=== PATIENT | female | born 1945 | race Caucasian/White ===

== ENCOUNTER 2018-12-10 14:15 | Observation (INO) | payer MEDICARE ==
[2018-12-10 15:56] LABS: Urine Appearance Clear; Urine Bilirubin Negative (Negative); Urine Blood Negative (Negative); Urine Color Straw; Urine Glucose Negative (Negative); Urine Ketones Negative (Negative); Urine Nitrite Negative (Negative); Urine Protein Negative (Negative); Urine Specific Gravity 1.003 (1.010-1.030); Urine Urobilinogen Negative (Negative)
[2018-12-10 16:08] LABS: ABS Basophils 0.1 10^3/ul (0-0.2); ABS Eosinophils 0.2 10^3/ul (0-0.6); ABS Lymphocytes 1.9 10^3/ul (1.0-4.8); ABS Monocytes 0.8 10^3/ul (0-0.8); ABS Neutrophils 5.5 10^3/ul (1.5-7.7); Eosinophil % 1.8 %; Hematocrit 41 % (35-47); Hemoglobin 14.1 g/dL (12.0-16.0); Lymphocyte % 22.2 %; Mean Corpuscular HGB Conc 34 g/dL (31-36); Mean Corpuscular Hemoglobin 30 pg (27-31); Mean Corpuscular Volume 87 fL (80-97); Mean Platelet Volume 8.1 fL (7.4-10.4); Platelet Count 265 10^3/uL (150-450); Red Blood Count 4.73 10^6 /uL (3.70-4.87); Red Cell Distribution Width 15 % (10-15); White Blood Count 8.4 10^3/uL (3.5-10.8)
[2018-12-10] MEDS ORDERED: Aspirin 81 mg CHEW TAB* 81 MG TAB.CHEW PO ONE (16:18)
--- NOTE | 2018-12-10 16:18 | ED ---
Neurological HPI - HPI Summary HPI Summary: This patient is a 73 year old F with a history of scoliosis presenting to [facility] accompanied by son with a chief complaint of chronic unsteady gait, worsening since November,. Pt report Dr. 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 Patient reports spasming in her left thigh. Patient denies weakness and numbness in arms and legs. No history of prior stroke. - History of Current Complaint Chief Complaint: EDNeurologicalDeficit Stated Complaint: WEAKNESS AND FALLING PER PT Time Seen by Provider: 12/10/18 15:24 Hx Obtained From: Patient Onset/Duration: Started weeks ago, Still Present, Worse Since - November 2018 Timing: Constant Pain Intensity: 0 Pain Scale Used: 0-10 Numeric Character: Other: - Unsteadt gait Associated Signs and Symptoms: Positive: Unsteady Gait. Negative: Weakness, Numbness - Allergy/Home Medications Allergies/Adverse Reactions: Allergies Allergy/AdvReac Type Severity Reaction Status Date / Time amoxicillin Allergy Nausea Verified 12/10/18 14:22 Home Medications: Home Medications Acetaminophen [Tylenol] 650 mg PO Q8H PRN 12/10/18 [History Confirmed 12/10/18] Amlodipine Besylate [Norvasc] 7.5 mg PO DAILY 12/10/18 [History Confirmed ] Aspirin [Aspirin EC] 81 mg PO DAILY 12/10/18 [History Confirmed 12/10/18] Cholecalciferol TAB* [Vitamin D TAB*] 1,000 units PO DAILY 12/10/18 [History Confirmed 12/10/18] Levothyroxine TAB* [Synthroid TAB*] 75 mcg PO EVERY OTHER DAY 12/10/18 [History Confirmed 12/10/18] Levothyroxine TAB* [Synthroid TAB*] 150 mcg PO EVERY OTHER DAY 12/10/18 [ History Confirmed 12/10/18] Loratadine [Claritin] 10 mg PO DAILY 12/10/18 [History Confirmed 12/10/18] Oxybutynin XL TAB* [Ditropan XL TAB*] 5 mg PO DAILY 12/10/18 [History Confirmed 12/10/18] Sertraline* [Zoloft*] 100 mg PO DAILY 12/10/18 [History Confirmed 12/10/18] PMH/Surg Hx/FS Hx/Imm Hx Endocrine/Hematology History: Reports: Hx Thyroid Disease Cardiovascular History: Reports: Hx Hypertension Infectious Disease History: No Infectious Disease History: Denies: Traveled Outside the [place] in Last 30 Days - Family History Known Family History: Positive: Hypertension, Diabetes - Social History Occupation: Retired Alcohol Use: Weekly Alcohol Amount: 3-4 x a week Hx Substance Use: No Substance Use Type: Reports: None Hx Tobacco Use: No Smoking Status (MU): Never Smoked Tobacco Review of Systems Positive: Other - pos -spasming in left thigh Neurological: Other - pos - unsteady gait Positive: Numbness. Negative: Weakness All Other Systems Reviewed And Are Negative: Yes Physical Exam - Summary Physical Exam Summary: Constitutional: Well-developed, Well-nourished, Alert. (-) Distressed Skin: Warm, Dry HENT: Normocephalic; Atraumatic Eyes: Conjunctiva normal Neck: Musculoskeletal ROM normal neck. (-) JVD, (-) Nuchal rigidity Cardio: Rhythm regular, rate normal, Heart sounds normal; Intact distal pulses; Radial pulses are 2+ and symmetric. (-) Murmur Pulmonary/Chest wall: Effort normal. (-) Respiratory distress, (-) Wheezes, (-) Rales Abd: Soft. (-) Tenderness, (-) Distension, (-) Guarding, (-) Rebound Musculoskeletal: (-) Edema Lymph: (-) Cervical adenopathy Neuro: Alert, PERRL, Oriented x3, Strength normal, Cranial nerves II-XII are grossly intact. SILT, Strength 5/5 BUE and BLE, (-) Dysmetria, (-) Nystagmus, ambulates w limping gait favors right leg. Psych: Mood and affect Normal Triage Information Reviewed: Yes Vital Signs On Initial Exam: Initial Vitals Temp Pulse Resp BP Pulse Ox 98.5 F 91 16 192/112 97 12/10/18 14:18 12/10/18 14:18 12/10/18 14:18 12/10/18 14:18 12/10/18 14:18 Vital Signs Reviewed: Yes Diagnostics - Vital Signs Vital Signs Temp Pulse Resp BP Pulse Ox 12/10/18 15:28 80 28 164/96 96 12/10/18 15:27 80 18 96 12/10/18 14:18 98.5 F 91 16 192/112 97 - Laboratory Lab Results: Lab Results 12/10/18 12/10/18 Range/Units 15:40 15:59 WBC 8.4 (3.5-10.8) 10^3/uL RBC 4.73 (3.70-4.87) 10^6 /uL Hgb 14.1 (12.0-16.0) g/dL Hct 41 (35-47) % MCV 87 (80-97) fL MCH 30 (27-31) pg MCHC 34 (31-36) g/dL RDW 15 (10-15) % Plt Count 265 (150-450) 10^3/uL MPV 8.1 (7.4-10.4) fL Neut % (Auto) 65.6 % Lymph % (Auto) 22.2 % Perkins % (Auto) 9.6 % Eos % (Auto) 1.8 % Baso % (Auto) 0.8 % Absolute Neuts (auto) 5.5 (1.5-7.7) 10^3/ul Absolute Lymphs (auto) 1.9 (1.0-4.8) 10^3/ul Absolute Monos (auto) 0.8 (0-0.8) 10^3/ul Absolute Eos (auto) 0.2 (0-0.6) 10^3/ul Absolute Basos (auto) 0.1 (0-0.2) 10^3/ul Absolute Nucleated RBC 0.0 10^3/ul Nucleated RBC % 0.0 Urine Color Straw Urine Appearance Clear Urine pH 7.0 (5-9) Ur Specific Berino 1.003 L (1.010-1.030) Urine Protein Negative (Negative) Urine Ketones Negative (Negative) Urine Blood Negative (Negative) Urine Nitrate Negative (Negative) Urine Bilirubin Negative (Negative) Urine Urobilinogen Negative (Negative) Ur Leukocyte Esterase Negative (Negative) Urine Glucose Negative (Negative) Result Diagrams: 12/10/18 15:59 12/10/18 15:59 Lab Statement: Any lab studies that have been ordered have been reviewed, and results considered in the medical decision making process. - CT Head CTA CT Interpretation Completed By: Radiologist Summary of CT Findings: Head CTA reveals, per radiologist, IMPRESSION: 1. NO EVIDENCE FOR GROSS ACUTE INFARCT, MASS EFFECT OR HEMORRHAGE. 2. NO EVIDENCE FOR CAROTID STENOSIS. ED physician has reviewed this radiology report. - EKG 1531 Cardiac Rate: NL - 78 bpm EKG Rhythm: Sinus Rhythm Summary of EKG Findings: An EKG at 1531 reveals normal sinus rhythm 78 bpm, nml axis, nml intervals. No STEMI. No acute changes. NIH Scale - NIH Scale Level of Consciousness: Alert/Keenly Responsive Ask Patient the Month and His/Her Age: Both Correct Ask Pt to Open/Close Eyes and Regional Sales Executive/Release Non-Paretic Hand: Both Correctly Best Gaze (Only Horizontal Eye Movement): Normal Visual Field Testing: No Visual Loss Facial Paresis-Pt to Smile & Close Eyes or Grimace Symmetry: Normal/Symmetrical Motor Function - Right Arm: No Drift-Holds 10 Seconds Motor Function - Left Arm: No Drift-Holds 10 Seconds Motor Function - Right Leg: No Drift-Holds 10 Seconds Motor Function - Left Leg: No Drift-Holds 10 Seconds Limb Ataxia-Must be out of Proportion to Weakness Present: Absent Sensory (Use Pinprick to Test Arms/Legs/Trunk/Face): Normal Best Language (Describe Picture, Name Items): No Aphasia Dysarthria (Read Several Words): Normal Extinction and Inattention: No Abnormality Total Score: 0 Course/Dx - Course Course Of Treatment: 73-year-old female with a history of HTN and scoliosis sent in by ship mate for stroke workup. Patient MRI at [facility] showing sclerosis stroke. Will discuss with on-call neurology and plan for medicine and admit for workup. - patient already on aspirin. - CTA head and neck ordered, echo ordered - Diagnoses Provider Diagnoses: Stroke - Physician Notifications Discussed Care Of Patient With: Richard Moy Time Discussed With Above Provider: 16:16 Instructed by Provider To: Other - Spoke with Dr. Moy, who recommends CTA head and neck and aspirin 81 mg; 16:45 - Discussed pt case with Dr. Tyler, who accepts pt for admission. Discharge - Sign-Out/Discharge Documenting (check all that apply): Patient Departure - Admit Patient Received Moderate/Deep Sedation with Procedure: No - Discharge Plan Condition: Good Disposition: ADMITTED TO [facility] - Billing Disposition and Condition Condition: GOOD Disposition: Admitted to [facility] - Attestation Statements Document Initiated by Scribe: Yes Documenting Scribe: Griselda Russ Provider For Whom Jessie is Documenting (Include Credential): Dr. Wagner Muhammad MD Scribe Attestation: Cece, Griselda Russ, scrashleyed for Dr. Wagner Muhammad MD on 12/10/18 at 1916. Scribe Documentation Reviewed: Yes Provider Attestation: The documentation as recorded by the jessie, Griselda Russ accurately reflects the service I personally performed and the decisions made by me, Dr. Wagner Muhammad MD Status of Scribe Document: Viewed
[2018-12-10 16:38] LABS: Albumin 4.6 g/dL (3.2-5.2); Calcium 9.7 mg/dL (8.6-10.3); EGFR African American 80.6 (>60); EGFR Non-African American 66.6 (>60); Globulin 2.3 g/dL (2-4); Potassium 4.2 mmol/L (3.5-5.0); Total Bilirubin 0.4 mg/dL (0.2-1.0); Total Protein 6.9 g/dL (6.4-8.9)
[2018-12-10] MEDS ORDERED: Iohexol 350* (CONTRAST) 500 ML MDV IV ONE (16:54)
[2018-12-10] MEDS ORDERED: Acetaminophen TAB* 325 MG PO PRN (17:59)
[2018-12-10] MEDS ORDERED: Enoxaparin(*) 40 MG/0.4 ML SYR SUBCUT SCH (21:00)
--- NOTE | 2018-12-10 21:23 | HP ---
CC: Lori Hubbard M.D. * HISTORY AND PHYSICAL: DATE OF ADMISSION: 12/10/18 PRIMARY CARE PHYSICIAN: Lori Hubbard M.D. HEALTHCARE PROXY: Her son, Zackary Forte. Cellphone: [phone]. CODE STATUS: Full. CHIEF COMPLAINT: Sent in from PCP for stroke seen on MRI. HISTORY OF PRESENT ILLNESS: Ms. Juárez is a 73-year-old woman with a history of hypertension, hypothyroidism, seasonal allergies, overactive bladder , and major depressive disorder, who is presenting after subacute progressive gait unsteadiness associated with mechanical falls. The patient reports that baseline her whole life she has had a "unevenness" of her gait due to scoliosis since childhood, and she reports that this has been progressive over her life, however, she reports that over the last month, she felt even more unsteady on her legs and that her legs frequently would either give out or cramp up and that she had suffered 2 mechanical falls from this and had multiple prevented falls. She went to her primary care physician, who ordered a brain MRI, which the patient states showed "demyelination and a stroke of the corpus callosum." The results of that MRI done on 12/07/18, came back today, the patient was contacted and told to come to the emergency room for expedited stroke workup. In the emergency room, the patient underwent a head CTA, which was without abnormalities. Her labs were unremarkable. Given demyelination and new stroke , she was asked to be admitted for stroke workup with neurology consult. PAST MEDICAL HISTORY: 1. Hypertension. 2. Hypothyroidism. 3. Overactive bladder. 4. Major depressive disorder. 5. Seasonal allergies. 6. Scoliosis. HOME MEDICATIONS: 1. Amlodipine 7.5 mg daily. 2. Sertraline 100 mg daily. 3. Levothyroxine 75 mcg every other day, 150 mcg every other day. 4. Oxybutynin 5 mg daily. 5. Loratadine 10 mg daily. 6. Aspirin 81 mg daily. 7. Vitamin D 1000 units daily. ALLERGIES: AMOXICILLIN caused nausea and vomiting. FAMILY HISTORY: The patient's mother had diabetes and from cardiac complications from this. Her father is 95 and has hypertension and is otherwise alive and well. SOCIAL HISTORY: The patient lives alone. She is a retired occupational therapist. She is a never smoker and has never used recreational drugs. She drinks approximately 3 to 4 glasses of wine or beer per week. Her healthcare proxy is her son, Zackary. PHYSICAL EXAMINATION GENERAL: She is a well-appearing woman, pleasant, in no acute distress. Alert and interactive. VITAL SIGNS: Afebrile. Heart rate 70s, blood pressure 156/80, respiratory rate 20, oxygen saturation 98% on room air. HEENT: Sclerae atraumatic. Moist mucous membranes. OP clear. NECK: Supple. No JVD. LUNGS: Clear to auscultation bilaterally. HEART: Regular rate and rhythm. No murmurs, gallops or rubs. ABDOMEN: Soft, nontender, nondistended. EXTREMITIES: Warm and well perfused. No evidence of edema. NEUROLOGIC: CN II through XII intact. A and O x3. [id number] and heel slide over diaz intact bilaterally. Strength 5/5 in upper and lower extremities. Sensation intact bilaterally in extremities. Gait normal. DIAGNOSTIC STUDIES/LAB DATA: CBC, BMP, LFTs, and UA are unremarkable. Head CTA without evidence for gross acute infarct, mass effect, hemorrhage, carotid stenosis or large vessel intracranial thrombus. EKG: Normal sinus rhythm, 78, possible Q wave in III and aVF. ASSESSMENT AND PLAN: Ms. Juárez is a 73-year-old woman with hypertension, hypothyroidism, and major depressive disorder, who is presenting with progressive subacute gait unsteadiness associated with mechanical falls, and was found in clinic with MRI concerning for stroke in her corpus callosum. 1. Concern for her stroke. CTA was normal. The patient is ordered for TTE and will remain on telemetry overnight. Neurology consult has been placed. She is to continue aspirin after obtaining outside brain MRI. We will likely initiate statin medication. PT/OT has been ordered. We will need to clarify what this demyelination was that was seen on outside brain MRI. 2. Hypertension. Continue amlodipine 7.5 mg daily. 3. Hypothyroidism. Continue home levothyroxine 150 mcg every other day and 75 mcg every other day. 4. Major depressive disorder. Continue home sertraline 100 mg daily. 5. Seasonal allergies. Continue loratadine 10 mg daily. 6. Overactive bladder. Continue home oxybutynin 5 mg daily. 7. DVT prophylaxis. Initiate Lovenox 40 mg subcu daily. 8. Code status. Full code. TIME SPENT: Approximately 60 minutes was spent on admission of this patient, more than half of which was spent at the bedside for interview and exam. [id number]/[facility] #: [id number] ELAN
[2018-12-11] MEDS ORDERED: Levothyroxine TAB* 75 MCG TAB PO SCH (06:00)
[2018-12-11 08:23] VITALS: BP 133/81
[2018-12-11] MEDS ORDERED: Aspirin EC TAB* 81 MG TAB.EC PO SCH (09:00)
[2018-12-11] MEDS ORDERED: amLODIPine TAB* 5 MG PO SCH (09:00)
[2018-12-11] MEDS ORDERED: Oxybutynin XL TAB* 5 MG PO SCH (09:00)
[2018-12-11] MEDS ORDERED: Sertraline* 100 MG TAB PO SCH (09:00)
[2018-12-11] MEDS ORDERED: Cholecalciferol TAB* 1000 UNITS PO SCH (09:00)
[2018-12-11 10:20] LABS: TSH (Thyroid Stimulating Horm) 3.95 mcIU/mL (0.34-5.60)
--- NOTE | 2018-12-11 12:05 | ECHO ---
*[facility]* [place] [address] Fax #: [phone] Transthoracic Echocardiogram Patient: Rakel Juárez : 1945 Study Date: 12/11/2018 Age: 73 Gender: F HR: 69 bpm Height: 60 in /152.4 cm BSA: 1.61 m^2 Weight: 141.7 lb /64.4 kg BMI: 27.7 kg/m^2 *Process Machine Operator: * Courtney De Santiago RDCS RN *Referring Physician: * Wagner Muhammad *Reading Physician: * Carmelo Chaudhry MD Indications: TIA. History: Hypothyroidism. Scoliosis. Risk factors: Hypertension. Conclusions Summary: - Left ventricle: The cavity size is normal. Septal wall thickness is mildly increased. Systolic function is normal. The estimated ejection fraction is 60-65%. Doppler parameters are consistent with abnormal left ventricular relaxation (grade 1 diastolic dysfunction). - Atrial septum: A PFO is demonstrated by agitated saline contrast with valsalva. A moderate amount of contrast was noted to transiently shunt right to left. - Aortic valve: The valve is trileaflet. The leaflets are mildly thickened. There is mild regurgitation. Study data: Transthoracic echocardiogram. Procedure: Transthoracic echocardiography was performed. Image quality was fair. Intravenous agitated saline was administered. A bubble study was performed. Images 1-3. Complete 2D, spectral Doppler, and color flow Doppler. Location: Bedside. Patient status: Observation. Patient room number: 441-01. No prior study is available for comparison. Rhythm: Normal sinus rhythm with PAC's. Findings Left ventricle: The cavity size is normal. Septal wall thickness is mildly increased. Systolic function is normal. The estimated ejection fraction is 60-65%. Wall motion is normal; there are no regional wall motion abnormalities. Doppler parameters are consistent with abnormal left ventricular relaxation (grade 1 diastolic dysfunction). Right ventricle: The cavity size is normal. Systolic function is normal. Left atrium: The atrium is normal in size. Right atrium: The atrium is normal in size. Atrial septum: Not well visualized. A PFO is demonstrated by agitated saline contrast with valsalva. A moderate amount of contrast was noted to transiently shunt right to left. Mitral valve: The leaflets are mildly thickened. There is no evidence of stenosis. There is trace regurgitation. Aortic valve: The valve is trileaflet. The leaflets are mildly thickened. There is no evidence of stenosis. There is mild regurgitation. Tricuspid valve: The valve is structurally normal. There is no evidence of stenosis. There is trace regurgitation. Pulmonic valve: Not well visualized. There is no evidence of stenosis. There is no significant regurgitation. Aorta: Aortic root: The aortic root is not dilated. Ascending aorta: The ascending aorta is not dilated. Aortic arch: The aortic arch is not dilated. Pericardium: There is no significant pericardial effusion. Pulmonary arteries: Not well visualized. Systolic pressure is within the normal range, estimated to be 24 mm Hg. Systemic veins: Inferior vena cava: The vessel is normal in size. There is (>= 50%) respiratory change in the IVC dimension. Measurements Left ventricle Value Ref Aortic valve Value Ref DAYANA, LAX 4.3 cm 3.8 - 5.2 Buffy diam, ED 1.8 cm ---- ESD, LAX 3.0 cm 2.2 - 3.5 Peak v, S 1.53 m/sec ---- FS, LAX 31 % 27 - 45 VTI, S 35.7 cm ---- PW, ED 0.8 cm 0.6 - 0.9 Mean grad, S 6.0 mm Hg ---- IVS/PW, ED 1.41 Peak grad, S 9.0 mm Hg ---- E', lat buffy, TDI (L) 4.7 cm/sec >=10.0 LVOT/AV, VTI ratio 0.73 -- -- E/e', lat buffy, 13 TDI Mitral valve Value Ref E', med buffy, TDI (L) 4.1 cm/sec >=7.0 Peak E 0.61 m/sec -- -- E/e', med buffy, 15 Peak A 1.19 m/sec ---- TDI Decel time 268 ms ---- E', avg, TDI 4.4 cm/sec Peak E/A ratio 0.5 ---- E/e', avg, TDI 14 <=14 Pulmonic valve Value Ref LVOT Value Ref Peak v, S 0.8 m/sec ---- Peak harshad, S 1.22 m/sec Peak grad, S 3.0 mm Hg ---- VTI, S 25.9 cm Peak grad, S 6 mm Hg Tricuspid valve Value Ref Mean grad, S 3 mm Hg Peak RV-RA grad, S 21 mm Hg ---- Max TR harshad 2.3 m/sec ---- Ventricular septum Value Ref IVS, ED (H) 1.2 cm 0.6 - 0.9 Aortic root Value Ref Root diam 2.8 cm <3.9 Right ventricle Value Ref DAYANA, LAX 3.0 cm Ascending aorta Value Ref DAYANA minor ax, A4C 2.9 cm 1.9 - 3.5 AAo AP diam, S 3.1 cm ---- mid Aortic arch Value Ref Left atrium Value Ref Arch diam 2.2 cm ---- AP dim, ES 3.80 cm 2.70 - 3.80 Decending aorta Value Ref ML dim, A4C 3.9 cm Silvino peak harshad 0.74 m/sec ---- SI dim, A4C 4.8 cm Vol/bsa, ES, 1-p 33 ml/m^2 11 - 40 Inferior vena cava Value Ref A4C Diam 1.7 cm ---- Vol/bsa, ES, A/L 31 ml/m^2 16 - 34 Right atrium Value Ref ML dim, ES, A4C 3.1 cm 2.6 - 4.4 SI dim, ES, A4C 4.3 cm 3.4 - 5.3 Estimated RAP 3 mm Hg Legend: (L) and (H) memo values outside specified reference range. Prepared and electronically signed by Carmelo Chaudhry MD 12/11/2018 12:04
[2018-12-11] MEDS ORDERED: Cyanocobalamin INJ * 1,000 MCG/ML VIAL 1 ML VIAL IM ONE (13:07)
[2018-12-11 13:29] LABS: HDL Cholesterol 62.3 mg/dL
[2018-12-11] MEDS ORDERED: Cyanocobalamin TAB* 500 MCG PO SCH (14:00)
--- NOTE | 2018-12-11 14:49 | CONS ---
NEUROLOGY CONSULTATION NOTE: DATE OF CONSULT: 12/11/18 CONSULTING PROVIDER: Darcie Tyler MD. REASON FOR CONSULT: Stroke. CHIEF COMPLAINT: Gait imbalance. 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 She has gait imbalance at baseline. However, over the last 3 weeks, she felt something was different. She had multiple falls over the past few weeks. She noticed that she is having increase in balance problems. She also noticed spasm of the left lower extremity. She describes an event on 11/27/18 where she slid off the bed and fell. She had a second fall that day at a friend's house when she was reaching out for a dish, fell, and hit the counter and the fiber design engineer. She stated that she just lost balance. She denied any vertigo or tinnitus. She denied any weakness. She denied any head injury or loss of consciousness. The symptoms seemed to have subsided over the last 10 days. Her last fall was on 11/27/18. She went to her primary care doctor, Dr. Lori Hubbard, who ordered an MRI of the brain, which was done on . The MRI was abnormal and showed an acute 1.5 cm lesion in the body of the corpus callosum with mild enhancement. There was an area of restricted diffusion and low ADC mapping, which is consistent with a nonhemorrhagic stroke. However, a small mass or demyelinating lesion cannot be entirely excluded. The actual images were not available today as this study was done at [place]. Dr. Boston Chapa was contacted today by Dr. Hubbard and he recommended the patient to be referred to [facility] for further evaluation. For the past 1 week, the patient stated that her symptoms significantly improved and she feels like she is almost back to her normal self. She does complain of chronic fatigue though and intermittent headaches. She has always had chronic headaches, usually lasting minutes to hours, without any associated symptoms of photophobia or nausea. In the ED, the patient had a head CTA that showed no evidence of large vessel occlusion, acute infarct, mass effect, or hemorrhage. She had no evidence of carotid stenosis. She had a transthoracic echo completed on 12/10/18 that reported a normal ejection fraction of 60% to 65% with a PFO that is demonstrated by agitated saline contrast with Valsalva. There was a moderate amount of contrast noted representing a shunt from right to left. The patient denied any lower extremity weakness or pain. She is extremely active. The patient was taking aspirin regularly, but stopped taking aspirin 1 year ago. She was restarted on aspirin last week after she saw her primary care doctor and after her symptoms of increasing falls and gait imbalance. PAST MEDICAL HISTORY: Hypertension, dyslipidemia, scoliosis. PAST SURGICAL HISTORY: Appendectomy, , Bartholin cyst, and mammoplasty. HOME MEDICATIONS: 1. Acetaminophen 650 mg p.o. every 8 hours as needed. 2. Loratadine 10 mg p.o. daily. 3. Vitamin D 1000 units p.o. daily. 4. Aspirin, which she started a week ago after her symptoms, 81 mg p.o. daily. 5. Sertraline 100 mg p.o. daily. 6. Amlodipine 7.5 mg p.o. daily. 7. Levothyroxine 75 mcg p.o. every other day. 8. Levothyroxine 150 mcg p.o. every other day. 9. Oxybutynin 5 mg p.o. daily. ALLERGIES: The patient has allergies to AMOXICILLIN. FAMILY HISTORY: Father is alive and he will turn 94 in 2 weeks. He does have hypertension. Mother due to complications of diabetes. SOCIAL HISTORY: She is a retired occupational therapist. She is not . She lives alone. She drinks alcohol about 3 times a week. REVIEW OF SYSTEMS: A 14-point review of systems was obtained and otherwise negative except for what was mentioned in the HPI. PHYSICAL EXAMINATION: Vitals: Temperature of 98.3, pulse up to 61, respiratory rate 16, oxygen saturation of 97%, blood pressure of 133/81. General: Well- nourished, well-developed female, in no acute distress. Head: Atraumatic, normocephalic without any obvious abnormalities. Neck is supple and symmetrical with no carotid bruit. Eyes: Conjunctivae/corneas are clear. Respiratory: Clear to auscultation bilaterally with no wheezing or rhonchi. Cardiovascular: Regular rate and rhythm with normal S1, S2. Extremities: Normal range of motion with no cyanosis. She has no hammertoes or high arches. Negative calf tenderness. Skin: No skin lesions or laceration. Psych: Affect is broad and normal mood. Easy to establish rapport. Neurological: Awake, alert, oriented to person, place, time, and general circumstances. Language and speech including expression, comprehension, and repetition were assessed and found to be normal. NIH stroke scale is 0. Cranial Nerves: Normal confrontation testing. Pupils equal, round, and reactive to light. Extraocular muscles intact. Normal sensation in the face bilaterally, no facial asymmetry. Tongue is symmetric and midline with no atrophy or fasciculation. Motor: Normal tone and bulk throughout. She has 5/5 strength in the upper and lower extremities bilaterally and symmetrically. Reflexes 2+ in the biceps, triceps, brachioradialis, and 3+ in the left knee. 2+ in the right knee. 2+ in the bilateral ankles. Flexor plantar response bilaterally. Sensation is intact to light touch throughout. Vibration and proprioception at the great toes are normal with vibration of approximately 15-16 seconds bilaterally. Coordination: Normal bkynul-wz-wdei and iacs-ux-wmov testing bilaterally. Gait: Antalgic, asymmetric gait due to scoliosis. DIAGNOSTIC STUDIES/LAB DATA: WBC 8.2, hemoglobin 14, hematocrit 41, platelet count 265. Sodium 143, potassium 4.2, chloride 108, carbon dioxide 27, BUN of 16, creatinine of 0.84, glucose of 91. LDL is pending. Vitamin B12 is 125. TSH 3.95. Urinalysis negative for pyuria. ASSESSMENT: Ms. Rakel Juárez is a 73-year-old female who has a history of hypertension, dyslipidemia, and scoliosis, who developed a gradual onset of gait imbalance that seems to have improved over the last 1 week. The patient also has had multiple falls with the last fall being on 11/27/18. She did not suffer any head injury. The falls were not associated with loss of consciousness. On neurological examination, the patient has no focal deficits other than antalgic gait due to scoliosis. She had an MRI done on 12/07/18 that showed an enhancing lesion in the body of the corpus callosum with areas of restricted diffusion on DWI and low intensity on ADC consistent with an acute stroke. However, there was contrast given with the study and slight enhancement was seen. Subacute stroke can enhance within the first 2 to 3 weeks after a stroke. Therefore, this is most likely related to a small lacunar stroke in the corpus callosum. However, a small mass or demyelinating lesion cannot be entirely excluded. The actual image was not available and we are going of the MRI report. 1. Most likely stroke involving the corpus callosum - I suspect this would be a lacunar stroke. The cause of the stroke is most likely small vessel disease. However, a cardioembolic source in the setting of patent foramen ovale cannot be entirely excluded. The patient was recently started on aspirin. She is not a candidate for IV TPA or mechanical thrombectomy given that she is outside of the therapeutic window. NIH stroke scale today is 0. The patient feels like she is getting better over the last 10 days. RECOMMENDATION: I recommend continuing aspirin 81 mg daily. I ordered a lipid panel. I started her on atorvastatin 40 mg daily. If her LDL comes back to be above 70, then I would increase the dose to 80 mg nightly. No need for PT/OT/ SPEECH PATHOLOGIST ASSISTANT evaluation or treatment since the patient is asymptomatic. No need for anticoagulation therapy as the patient has no evidence of atrial arrhythmias. Secondary stroke prevention was discussed with the patient in detail. In regards to the enhancing lesion, enhancement of that area in the corpus callosum, I recommended repeat MRI with and without contrast in 4 to 6 weeks. Stroke should not enhance at that time. If there is enhancement, further evaluation will be done as an outpatient. Again, the suspicion for a mass, tumor, or demyelinating lesion is low since the patient's symptoms have resolved. 2. Vitamin B12 deficiency, I started the patient on supplement. I recommend cyanocobalamin 1000 mcg IM for a total of 5 days. She should continue taking cyanocobalamin p.o. daily. Please repeat the vitamin B12 in 4 to 6 months. 3. PFO, I recommend an outpatient cardiology evaluation. I also recommend ordering a Doppler of the lower extremity to rule out any DVTs while she is in- house. Follow up with [facility] in 6 to 8 weeks. [id number]/[facility] #: [id number] ELAN
[2018-12-11] MEDS ORDERED: Atorvastatin* 40 MG TAB PO SCH (17:00)
[2018-12-11] MEDS ORDERED: Atorvastatin* 80 MG TAB PO SCH (17:00)
[2018-12-11] MEDS ORDERED: Cetirizine* 10 MG TAB PO SCH (18:00)
--- NOTE | 2018-12-11 20:42 | DS ---
CC: Dr. Lori Hubbard; Dr. Moy * DISCHARGE SUMMARY: DATE OF ADMISSION: 12/10/18 DATE OF DISCHARGE: 12/11/18 PRIMARY CARE PHYSICIAN: Dr. Lori Hubbard. PRIMARY DIAGNOSES: 1. Possible lacunar stroke. 2. Vitamin B12 deficiency. 3. Patent foramen ovale. SECONDARY DIAGNOSES: 1. Hypertension. 2. Scoliosis. CONSULTS: Dr. Moy of Neurology. DISCHARGE MEDICATIONS: 1. Atorvastatin 80 mg nightly. 2. Aspirin 81 mg daily. 3. Vitamin B12 intramuscular injection 1000 mcg weekly to switch to 1000 mcg daily oral. 4. Loratadine 10 mg daily. 5. Amlodipine 7.5 mg daily. 6. Sertraline 100 mg daily. 7. Levothyroxine 75/150 mcg on alternating days. 8. Oxybutynin 5 mg daily. HISTORY OF PRESENT ILLNESS: Ms. Juárez is a 73-year-old woman with hypertension, hypothyroidism, seasonal allergies, overactive bladder, and major depressive disorder who presented after subacute progressive gait unsteadiness associated with mechanical falls. She reports that at baseline her whole life she has had "unevenness" of her gait due to scoliosis since childhood and she reports that this has been progressive for her whole life. However, she reports that over the last month she felt even more unsteady on her feet. She thinks her legs would frequently give out or they would cramp up, and because of this, she has suffered 2 mechanical falls in the last month and multiple falls that were prevented. She went to her primary care physician who ordered brain MRI that showed a lesion in the corpus callosum with chronic microvascular ischemic changes, so she was sent to the emergency room for expedited workup for possible stroke. HOSPITAL COURSE: In the emergency room, the patient underwent a head CTA which was without abnormalities. Her labs were also unremarkable. By the next day of admission, she was seen and evaluated by Neurology, who thought her MRI should be repeated in 4 to 6 weeks before making a definitive diagnosis of stroke. TTE revealed patent foramen ovale and lower extremity Doppler's were without evidence of clot. The patient's vitamin B12 resulted low at 125, and she was given a B12 injection during hospitalization. Her LDL cholesterol resulted 114, so she was started on a high dose of atorvastatin. On day of discharge, the patient reports that she felt back to her baseline. A complete 10- point review of systems was performed and negative. PHYSICAL EXAMINATION: The patient afebrile, heart rate 60s, blood pressure 133/ 81, respiratory rate 16, oxygen saturation 97% on room air. In general, she is a well- appearing woman, in no acute distress, alert and interactive, very pleasant. HEENT: OP clear. Moist mucous membranes. Lungs: Clear to auscultation bilaterally. Heart: Regular rate and rhythm. No murmurs, gallops , or rubs. Abdomen: Soft, nontender, nondistended. Skin: Warm and dry. Extremities: Warm and well perfused without evidence of edema. Neuro Exam: A and O x3. CN II through XII intact. Sensation intact bilaterally in upper and lower extremities. 5/5 strength in upper and lower extremities. Ixopnh-ev-zcqa intact bilaterally. Gait: Mildly antalgic due to scoliosis. DIAGNOSTIC STUDIES/LAB DATA: CBC, BMP, LFTs, and UA are unremarkable. HDL 62, LDL 114, triglycerides 232. TSH 3.95. Vitamin B12 of 125. Head CTA showed no evidence for acute infarct, mass effect, hemorrhage, carotid stenosis, or large vessel intracranial thrombus. Transthoracic echocardiogram showed LV with normal function and cavity size with estimated EF 60% to 65%. Doppler parameters show possible grade 1 diastolic dysfunction, septal wall thickness mildly increased, atrial septum with PFO demonstrated by agitated saline contrast with Valsalva. A moderate amount of contrast was noted to transiently shunt right to left. Aortic valve leaflets are mildly thickened, but trileaflet with mild regurgitation. Venous Doppler study without evidence for DVT. DISCHARGE PLAN: The patient is to follow up with her primary care physician as well as Neurology and Cardiology. Neurology should repeat her brain MRI about 4 to 6 weeks after prior MRI. She is to continue aspirin and newly started atorvastatin. She can follow up with Cardiology for monitoring and possible intervention of PFO. For vitamin B12 deficiency, she should be worked up for pernicious anemia and continue on IM B12 injections, though likely can be transitioned to oral high dose supplementation as to be determined by her primary care physician. She is to eat a healthy diet, low in processed foods, and resume activity as tolerated. She was educated on return precautions which include, but are not limited to, slurring of speech, worsening gait abnormalities, or focal numbness or weakness. DISPOSITION: To home. CONDITION: Good. TIME SPENT: Approximately 60 minutes was spent on discharge of this patient, more than half of which was spent with care coordination at bedside for interview and exam. [id number]/[facility] #: [id number] ELAN
[2018-12-12] MEDS ORDERED: Levothyroxine TAB* 150 MCG TAB PO SCH (06:00)
[2018-12-12] MEDS ORDERED: Cyanocobalamin INJ * 1,000 MCG/ML VIAL 1 ML VIAL IM SCH (09:00)
--- NOTE | 2018-12-24 12:09 | HP ---
HISTORY AND PHYSICAL: DATE OF ADMISSION: 12/10/18 ADDENDUM: A complete 10-point review of systems was performed and pertinent positives and negatives are listed in the HPI. [id number]/[facility] #: [id number] [facility]ITALTammie
== END 2018-12-11 16:00 | disposition home or self-care (01) ==
LOC: ED 14:15 → MEDTELE 17:51
PROVIDERS: ADMIT Internal Medicine; ATTEND Internal Medicine
DX: E53.8 Deficiency of other specified B group vitamins (principal); Q21.1 Atrial septal defect; I10 Essential (primary) hypertension; M41.9 Scoliosis, unspecified; Z79.82 Long term (current) use of aspirin; Z79.899 Other long term (current) drug therapy; E03.9 Hypothyroidism, unspecified; N32.81 Overactive bladder; F32.9 Major depressive disorder, single episode, unspecified; J30.2 Other seasonal allergic rhinitis; Z88.0 Allergy status to penicillin; E78.5 Hyperlipidemia, unspecified; M62.838 Other muscle spasm; R26.81 Unsteadiness on feet
CPT/HCPCS: 36415; 70496; 70498; 80053; 80061; 81003; 82607; 84443; 85025; 93005; 93306; 93970; 96372; 99283; A9270-GY; G0378; G8978-GP-CH; G8979-GP-CH; G8980-GP-CH; G8987-GO-CH; G8988-GO-CH; G8989-GO-CH; J1650; J3420; Q9967

== ENCOUNTER 2021-06-13 10:55 | Inpatient (IN) ==
[2021-06-13] MEDS ORDERED: NS 0.9% 1000 ml BAG 1,000 ML IV ONE (11:17)
[2021-06-13 11:26] LABS: Hematocrit 42 % (35-47); Hemoglobin 13.6 g/dL (12.0-16.0); Mean Corpuscular HGB Conc 33 g/dL (31-36); Mean Corpuscular Hemoglobin 26 pg (27-31); Mean Corpuscular Volume 80 fL (80-97); Mean Platelet Volume 7.4 fL (7.4-10.4); Platelet Count 322 10^3/uL (150-450); Red Cell Distribution Width 25 % (10-15); White Blood Count 9.6 10^3/uL (3.5-10.8)
[2021-06-13] MEDS ORDERED: Iodixanol (CONTRAST) 320 MG/ML 100 ML SDV IV ONE (11:34)
[2021-06-13 11:38] LABS: ABS Basophils 0.1 10^3/ul (0-0.2); ABS Eosinophils 0.2 10^3/ul (0-0.6); ABS Lymphocytes 1.6 10^3/ul (1.0-4.8); ABS Monocytes 0.9 10^3/ul (0-0.8); ABS Neutrophils 6.8 10^3/ul (1.5-7.7); Eosinophil % 1.8 %; Lymphocyte % 17.1 %
[2021-06-13 11:44] LABS: Activated Partial Thrombo Time 27.8 seconds (26.0-38.0); INR 0.98 (0.86-1.15)
[2021-06-13 11:46] LABS: Albumin 4.5 g/dL (3.2-5.2); Albumin/Globulin Ratio 1.9 (1-3); Calcium 10.1 mg/dL (8.6-10.3); Globulin 2.4 g/dL (2-4); HDL Cholesterol 86.5 mg/dL; Potassium 3.8 mmol/L (3.5-5.0); Total Bilirubin 0.4 mg/dL (0.2-1.0); Total Protein 6.9 g/dL (6.4-8.9); eGFR CKD-EPI 70.8 (>60)
[2021-06-13] MEDS ORDERED: Ondansetron 4 mg VIAL 2 MG/ML 2 ml VIAL IV PRN (13:30)
[2021-06-13] MEDS: Enoxaparin 40 MG/0.4 ML SYR SUBCUT SCH (13:56)
[2021-06-13 14:43] LABS: Vitamin D Total 25(OH) 29.3 ng/mL (20-50)
[2021-06-13 22:42] LABS: C Reactive Protein 1.7 mg/L (<8.01)
[2021-06-13 23:34] LABS: Erythrocyte Sed Rate 7 mm/Hr (0-29)
[2021-06-14 06:31] LABS: ABS Basophils 0.1 10^3/ul (0-0.2); ABS Eosinophils 0.2 10^3/ul (0-0.6); ABS Lymphocytes 1.9 10^3/ul (1.0-4.8); ABS Monocytes 0.8 10^3/ul (0-0.8); Eosinophil % 2.3 %; Hematocrit 37 % (35-47); Hemoglobin 12.2 g/dL (12.0-16.0); Lymphocyte % 27.7 %; Mean Corpuscular HGB Conc 33 g/dL (31-36); Mean Corpuscular Hemoglobin 26 pg (27-31); Mean Corpuscular Volume 79 fL (80-97); Mean Platelet Volume 7.7 fL (7.4-10.4); Platelet Count 266 10^3/uL (150-450); Red Blood Count 4.63 10^6 /uL (3.70-4.87); Red Cell Distribution Width 25 % (10-15); White Blood Count 6.9 10^3/uL (3.5-10.8)
[2021-06-14 06:47] LABS: Albumin 3.9 g/dL (3.2-5.2); Albumin/Globulin Ratio 2.1 (1-3); Calcium 9.3 mg/dL (8.6-10.3); Globulin 1.9 g/dL (2-4); HDL Cholesterol 71.8 mg/dL; Potassium 3.6 mmol/L (3.5-5.0); Total Bilirubin 0.4 mg/dL (0.2-1.0); Total Protein 5.8 g/dL (6.4-8.9); eGFR CKD-EPI 84.8 (>60)
[2021-06-14] MEDS: Aspirin EC 81 mg TAB.EC (enteric coated) PO SCH (07:43)
[2021-06-14] MEDS ORDERED: Aspirin EC 81 mg TAB.EC (enteric coated) PO SCH (09:00)
[2021-06-14] MEDS: Cholecalciferol (VIT D3) 1,000 unit TAB PO SCH (11:37)
[2021-06-14] MEDS: Enoxaparin 40 MG/0.4 ML SYR SUBCUT SCH (14:07)
[2021-06-14] MEDS ORDERED: Calcium Carb (TUMS) 500 mg CHEW TAB PO PRN (15:51)
[2021-06-14] MEDS ORDERED: Gadoteridol (CONTRAST) 279.3 MG/ML 10 ML IV ONE (19:29)
[2021-06-15 07:16] LABS: T4, Total 9.99 mcg/dL (6.09-12.23)
[2021-06-15 07:19] LABS: TSH Ultra Thyroid Stim Horm 17.24 mcIU/mL (0.34-5.60)
[2021-06-15] MEDS: Aspirin EC 81 mg TAB.EC (enteric coated) PO SCH (09:22)
[2021-06-15] MEDS: Cholecalciferol (VIT D3) 1,000 unit TAB PO SCH (12:24)
[2021-06-15] MEDS: Enoxaparin 40 MG/0.4 ML SYR SUBCUT SCH (12:26)
[2021-06-15 16:26] VITALS: BP 124/67
== END 2021-06-15 20:45 | disposition home or self-care (01) | DRG 65 ==
LOC: ED 10:55 → EDHOLD 10:55 → MEDTELE 15:54
PROVIDERS: ADMIT Hospitalist; ATTEND Internal Medicine

== ENCOUNTER 2021-11-24 05:43 | Observation (INO) ==
[2021-11-24] MEDS ORDERED: Buffered Lidocaine 1% SYRIN 1 ml INTRADERM ONE (06:00)
[2021-11-24] MEDS ORDERED: Lactated Ringers 1000 ml BAG 1,000 ML IV SCH (06:00)
[2021-11-24 06:37] LABS: Rapid COVID-19 Molecular Undetected (Undetected)
[2021-11-24] MEDS ORDERED: Ondansetron 4 mg VIAL 2 MG/ML 2 ml VIAL ONE (06:56)
[2021-11-24] MEDS ORDERED: Lidocaine 2% PF 5 ML VIAL ONE (06:56)
[2021-11-24] MEDS ORDERED: Propofol 10 MG/ML 20 ML BTL ONE (06:56)
[2021-11-24] MEDS ORDERED: Rocuronium 50 mg VIAL 10 mg/ml 5 ml VIAL (50 mg) ONE (06:56)
[2021-11-24] MEDS ORDERED: fentaNYL 250 mcg/5 ml 50 MCG/ML 5 ml VIAL (250 MCG) ONE (06:56)
[2021-11-24] MEDS ORDERED: Phenylephrine IV 10 MG/ML 1 ml VIAL ONE (06:56)
[2021-11-24] MEDS ORDERED: Midazolam 2 mg/2 ml VIAL 1 mg/ml 2 ml VIAL (2 mg) ONE (06:56)
[2021-11-24] MEDS ORDERED: Dexamethasone IV 4 MG/ML VIAL 1 ml VIAL ONE (06:56)
[2021-11-24] MEDS ORDERED: Lidocaine 1% w EPI 1:200,000 SDV 30 ML VIAL ONE (06:58)
[2021-11-24] MEDS ORDERED: Gelfoam 12-7 ADSORBABL SPONGE ONE ×2 (06:59→09:05)
[2021-11-24] MEDS ORDERED: Sterile Water for Inj 10 ML ONE (06:59)
[2021-11-24] MEDS ORDERED: Thrombin 5,000 UNITS 1 APPLIC KIT - topical use - TOPICAL ONE (06:59)
[2021-11-24] MEDS ORDERED: ceFAZolin 2 GM in NS PREMIX 2 GM/100 ML BAG IVPB ONE (07:33)
[2021-11-24] MEDS ORDERED: Naloxone 0.4 mg VIAL 0.4 mg/ml 1 ml VIAL IV PRN (08:03)
[2021-11-24] MEDS ORDERED: fentaNYL 100 mcg/2 ml 50 MCG/ML VIAL IV PRN (08:03)
[2021-11-24] MEDS ORDERED: Ondansetron 4 mg VIAL 2 MG/ML 2 ml VIAL IV PRN ×2 (08:03→09:33)
[2021-11-24] MEDS ORDERED: Acetaminophen IV 1 GM/100ML 100 ML IV ONE (08:30)
[2021-11-24] MEDS ORDERED: Magnesium Hydroxide LIQ 30 ML UDC PO PRN (09:33)
[2021-11-24] MEDS: Lactated Ringers 1000 ml BAG 1,000 ML IV SCH (11:57)
[2021-11-24] MEDS ORDERED: Dextran 70/Hypromellose Tears Eye Drops 15 ml BTL (for Artificials Tears) BOTH EYES PRN (13:17)
[2021-11-24] MEDS: Cholecalciferol (VIT D3) 1,000 unit TAB PO SCH (13:49)
[2021-11-24] MEDS: HYDROcodone/ACETAMIN 5/325 mg TAB PO PRN (13:50)
[2021-11-25] MEDS: Lactated Ringers 1000 ml BAG 1,000 ML IV SCH (01:03)
[2021-11-25] MEDS: HYDROcodone/ACETAMIN 5/325 mg TAB PO PRN (01:04)
[2021-11-25] MEDS: Cholecalciferol (VIT D3) 1,000 unit TAB PO SCH ×2 (09:24→10:40)
[2021-11-25 11:38] VITALS: BP 120/58
== END 2021-11-25 11:20 | disposition home or self-care (01) ==
LOC: AA 05:43 → INTOOBSV 05:43 → SSU 11:08
PROVIDERS: ADMIT Neurological Surgery; ATTEND Neurological Surgery

== ENCOUNTER 2022-02-18 18:00 | Inpatient (IN) ==
[2022-02-18 21:02] LABS: ABS Basophils 0.1 10^3/ul (0-0.2); ABS Eosinophils 0.1 10^3/ul (0-0.6); ABS Lymphocytes 1.8 10^3/ul (1.0-4.8); ABS Monocytes 1.2 10^3/ul (0-0.8); Eosinophil % 1.1 %; Hematocrit 39 % (35-47); Hemoglobin 12.6 g/dL (12.0-16.0); Lymphocyte % 15.9 %; Mean Corpuscular HGB Conc 32 g/dL (31-36); Mean Corpuscular Hemoglobin 27 pg (27-31); Mean Corpuscular Volume 84 fL (80-97); Platelet Count 291 10^3/uL (150-450); Red Blood Count 4.69 10^6 /uL (3.70-4.87); Red Cell Distribution Width 16 % (10-15); White Blood Count 11.1 10^3/uL (3.5-10.8)
[2022-02-18 21:47] LABS: Albumin 4.6 g/dL (3.2-5.2); Calcium 9.8 mg/dL (8.6-10.3); Globulin 2.3 g/dL (2-4); Total Bilirubin 0.5 mg/dL (0.2-1.0); Total Protein 6.9 g/dL (6.4-8.9); eGFR CKD-EPI 90.4 (>60)
[2022-02-18] MEDS ORDERED: Iohexol 350 (CONTRAST) 500 ML MDV IV ONE (21:55)
[2022-02-18] MEDS ORDERED: Morphine 2 MG/ML SYRINGE IV ONE (21:56)
[2022-02-18] MEDS ORDERED: oxyCODONE/Acetamin 5/325 mg TAB PO ONE (23:54)
[2022-02-19] MEDS ORDERED: Lidocaine PATCH 5% PATCH TRANSDERM ONE (00:01)
[2022-02-19 02:38] LABS: Urine Appearance Clear; Urine Bacteria Absent (Absent); Urine Bilirubin Negative (Negative); Urine Blood Negative (Negative); Urine Color Yellow; Urine Glucose Negative (Negative); Urine Ketones Trace (Negative); Urine Nitrite Negative (Negative); Urine Protein 1+(30 mg/dL) (Negative); Urine Red Blood Cell 1+(3-5/hpf) (Absent); Urine Squamous Epithelial Cell Present (Absent); Urine Urobilinogen Negative (Negative); Urine White Blood Cell 1+(6-10/hpf) (Absent)
[2022-02-19 02:39] LABS: Urine Specific Gravity > 1.060 (1.002-1.030)
[2022-02-19 04:45] LABS: ABS Basophils 0.1 10^3/ul (0-0.2); ABS Eosinophils 0.1 10^3/ul (0-0.6); ABS Lymphocytes 1.5 10^3/ul (1.0-4.8); ABS Monocytes 1.1 10^3/ul (0-0.8); ABS Neutrophils 7.4 10^3/ul (1.5-7.7); Eosinophil % 0.6 %; Hematocrit 34 % (35-47); Hemoglobin 11.1 g/dL (12.0-16.0); Lymphocyte % 15.1 %; Mean Corpuscular HGB Conc 33 g/dL (31-36); Mean Corpuscular Hemoglobin 28 pg (27-31); Mean Corpuscular Volume 84 fL (80-97); Mean Platelet Volume 7.8 fL (7.4-10.4); Platelet Count 248 10^3/uL (150-450); Red Blood Count 4.02 10^6 /uL (3.70-4.87); Red Cell Distribution Width 16 % (10-15); White Blood Count 10.3 10^3/uL (3.5-10.8)
[2022-02-19 05:31] LABS: Calcium 9.3 mg/dL (8.6-10.3); Potassium 4.2 mmol/L (3.5-5.0); eGFR CKD-EPI 90.8 (>60)
[2022-02-19] MEDS: Morphine 2 MG/ML SYRINGE IV PRN ×2 (05:46→16:35)
[2022-02-19] MEDS: Enoxaparin 40 MG/0.4 ML SYR SUBCUT SCH (05:47)
[2022-02-19] MEDS: Cholecalciferol (VIT D3) 1,000 unit TAB PO SCH (11:16)
[2022-02-19] MEDS ORDERED: Albuterol 2.5mg/3 ml (0.083%) NEB.SOLN INH ONE (18:27)
[2022-02-20] MEDS: Morphine 2 MG/ML SYRINGE IV PRN (01:45)
[2022-02-20] MEDS ORDERED: Albuterol 2.5mg/3 ml (0.083%) NEB.SOLN INH ONE (04:41)
[2022-02-20] MEDS: Enoxaparin 40 MG/0.4 ML SYR SUBCUT SCH (05:36)
[2022-02-20] MEDS: Cholecalciferol (VIT D3) 1,000 unit TAB PO SCH (15:27)
[2022-02-20] MEDS ORDERED: Cholecalciferol (VIT D3) 1,000 unit TAB PO SCH (21:00)
[2022-02-21] MEDS ORDERED: Albuterol 2.5mg/3 ml (0.083%) NEB.SOLN INH PRN (03:45)
[2022-02-21] MEDS: Enoxaparin 40 MG/0.4 ML SYR SUBCUT SCH (05:38)
[2022-02-21 11:20] VITALS: BP 110/68
[2022-02-21] MEDS ORDERED: COVID VACC, BIVAL PFIZER-TRIS 30 MCG/0.3 ML SYR IM ONE (12:00)
[2022-02-21] MEDS ORDERED: Magnesium Hydroxide LIQ 30 ML UDC PO ONE (12:14)
== END 2022-02-21 16:35 | disposition home health service (06) | DRG 184 ==
LOC: EDHOLD 18:00 → ED 18:00 → SUATTDRO 02-19 02:05 → EDHOLD 02-19 10:06 → SSU 02-19 10:56 → SUATTDRO 02-20 10:10
PROVIDERS: ADMIT Internal Medicine; ATTEND Internal Medicine